=== PATIENT | male | born 1930 | race Caucasian/White ===

== ENCOUNTER → 2017-04-10 | Outpatient (CLI) | payer MEDICARE, BC ==
[~2017-04-10] MED LIST: ASPIRIN 81M81 MG/TA2 PO; CALCIUM 600 W/V1 TAB PO; CITRUS CALCIUM200 MG PO; GLUCOSAMINE & C1 CA1 PO; HYTRIN 2MG CAPSU2 MG PO; NORCO 325 MG-51 TAB PO; PRILOSEC 20MG20 MG PO; ZOCOR 20MG20 MG PO; [UNRECOGNIZED DRUG - REMARK]
== END ==
LOC: COL.VAS 09:53
DX: I08.0 Rheumatic disorders of both mitral and aortic valves (principal); I28.8 Other diseases of pulmonary vessels; R01.1 Cardiac murmur, unspecified

== ENCOUNTER → 2018-04-22 | Outpatient (CLI) | payer MEDICARE, BC | LOC: COL.VAS 09:43 | DX: I35.1 Nonrheumatic aortic (valve) insufficiency (principal) ==

== ENCOUNTER → 2019-09-04 | Outpatient (CLI) | payer MEDICARE, BC | LOC: COL.VAS 12:19 | DX: I35.1 Nonrheumatic aortic (valve) insufficiency (principal) ==

== ENCOUNTER → 2020-07-20 | Outpatient (CLI) | payer MEDICARE, BC | LOC: COL.VAS 12:47 | DX: I08.2 Rheumatic disorders of both aortic and tricuspid valves (principal) ==

== ENCOUNTER 2020-12-27 16:46 | Observation (INO) | payer MEDICARE, BC ==
[~2020-12-27] VITALS: Ht 172.7 cm; Wt 72.7 kg
[2020-12-27 16:50] VITALS: TEMP 98.8
[2020-12-27] MEDS ORDERED: ONE-A-DAY ESSE1 EACH PO (17:15)
[2020-12-27 17:25] LABS: BASO % 0.1 % (0.0-2.0); EOS % 0.6 % (0-4.0); GRAN # 5.4 (1.4-6.5); GRAN % 74.7 % (42.2-75.2); HEMATOCRIT 39.7 % (42.0-52.0); HEMOGLOBIN 13.5 g/dl (13.5-18.0); LYMPH # 1.3 (1.2-3.4); LYMPH % 18.4 % (20.0-51.0); MEAN CELL VOLUME 92 fl (80.0-100.0); MEAN CORPUSCULAR HEMOGLOBIN 31 pg (27.0-31.0); MEAN CORPUSCULAR HGB CONC 34 g/dl (33.0-37.0); MEAN PLATELET VOLUME 9.7 fl (7.4-10.4); MONO # 0.4 (0.1-0.6); MONO % 5.9 % (1.7-9.3); PLATELET COUNT 134 K/mm3 (130-400); RED BLOOD COUNT 4.34 M/mm3 (4.20-5.60); REDCELL DISTRIBUTION WIDTH-CV 12.2 % (11.5-14.5)
[2020-12-27 17:35] LABS: ALANINE AMINOTRANSFERASE 11 U/L (4-49); ALBUMIN 3.7 gm/dL (3.5-5.0); ALKALINE PHOSPHATASE 58 U/L (50-136); ANION GAP 4 mmol/L (7-16); AST,SGOT 25 U/L (15-37); BILIRUBIN,TOTAL 0.8 mg/dL (0.0-1.0); BLOOD UREA NITROGEN 18 mg/dL (9-20); C-REACTIVE PROTEIN < 0.5 mg/dL (0.0-0.9); CALCIUM 8.5 mg/dL (8.4-10.2); CARBON DIOXIDE 29 mmol/L (22-30); CHLORIDE 106 mmol/L (98-107); CREATININE, serum 1.11 (0.66-1.25); GLUCOSE 127 mg/dL (74-106); POTASSIUM 4.2 mmol/L (3.4-5.0); SODIUM 138 mmol/L (137-145); TOTAL PROTEIN 6.4 gm/dL (6.4-8.2)
[2020-12-27 17:41] LABS: COLLECTION METHOD CLEAN CATCH
[2020-12-27 17:44] LABS: TROPONIN-I < 0.012 ng/mL (0.000-0.035)
[2020-12-27 17:46] LABS: MUCOUS Present /lpf; PH 6 (5-8); SQUAMOUS EPITHELIAL 0-2 /hpf; URINE APPEARANCE Clear; URINE BACTERIA None Seen /hpf; URINE BILIRUBIN Negative (NEGATIVE); URINE BLOOD Negative (NEGATIVE); URINE COLOR Yellow; URINE GLUCOSE Negative (NEGATIVE); URINE KETONE Negative (NEGATIVE); URINE LEUKOCYTE ESTERASE Negative (NEGATIVE); URINE NITRATE Negative (NEGATIVE); URINE PROTEIN(semi-quant) Negative (NEGATIVE); URINE RBC None Seen /hpf; URINE UROBILINOGEN >=4.0 mg/dL (NEGATIVE)
[2020-12-27 21:29] VITALS: BP 132/70; PULSE 77
[2020-12-29 14:20] LABS: ANION GAP 2 mmol/L (7-16); BLOOD UREA NITROGEN 15 mg/dL (9-20); CALCIUM 8.1 mg/dL (8.4-10.2); CARBON DIOXIDE 27 mmol/L (22-30); CHLORIDE 110 mmol/L (98-107); GLUCOSE 103 mg/dL (74-106); POTASSIUM 4.1 mmol/L (3.4-5.0); SODIUM 139 mmol/L (137-145); TROPONIN-I < 0.012 ng/mL (0.000-0.035)
[2020-12-29 16:37] LABS: BASO % 0.5 % (0.0-2.0); EOS # 0.1 (0.0-0.7); GRAN # 2.2 (1.4-6.5); GRAN % 53.7 % (42.2-75.2); HEMOGLOBIN 12.2 g/dl (13.5-18.0); LYMPH # 1.4 (1.2-3.4); LYMPH % 34.7 % (20.0-51.0); MEAN CELL VOLUME 95 fl (80.0-100.0); MEAN CORPUSCULAR HEMOGLOBIN 32 pg (27.0-31.0); MEAN CORPUSCULAR HGB CONC 34 g/dl (33.0-37.0); MEAN PLATELET VOLUME 10.1 fl (7.4-10.4); MONO # 0.3 (0.1-0.6); MONO % 7.9 % (1.7-9.3); PLATELET COUNT 124 K/mm3 (130-400); RED BLOOD COUNT 3.81 M/mm3 (4.20-5.60); REDCELL DISTRIBUTION WIDTH-CV 12.3 % (11.5-14.5)
== END 2020-12-28 17:30 | disposition home or self-care (01) ==
LOC: COL.ER 16:46 → MEDICAL 20:07
PROVIDERS: Nurse Practitioner; ADMIT Student in an Organized Health Care Education/Training Program
DX: R55 Syncope and collapse (principal); I10 Essential (primary) hypertension; N40.0 Benign prostatic hyperplasia without lower urinary tract symptoms; Z79.82 Long term (current) use of aspirin; Z90.49 Acquired absence of other specified parts of digestive tract
CPT/HCPCS: G0378

== ENCOUNTER → 2022-03-27 | Outpatient (CLI) | payer MEDICARE, BC ==
[~2022-03-27] MED LIST changes: +ONE-A-DAY ESSE1 EACH PO
== END ==
LOC: COL.VAS 03-22 14:45
DX: I08.2 Rheumatic disorders of both aortic and tricuspid valves (principal)